=== PATIENT | female | born 1960 | race Caucasian/White ===

== ENCOUNTER → 2024-02-12 10:01 | Outpatient (REF) | payer OTHER, SELFPAY | LOC: HWEVLT 10:01 | PROVIDERS: ATTENDING PHYSICIAN Radiology Vascular & Interventional Radiology | DX: I83.893 Varicose veins of bilateral lower extremities with other complications (principal) | CPT/HCPCS: 93970 ==

== ENCOUNTER → 2024-12-23 08:35 | Outpatient (REF) | payer MEDICARE, SELFPAY | LOC: HWRAD 08:35 | PROVIDERS: ATTENDING PHYSICIAN Internal Medicine | DX: M54.50 Low back pain, unspecified (principal) | CPT/HCPCS: 72100; 72202 ==